=== PATIENT | female | born 1980 | race Caucasian/White ===

== ENCOUNTER 2017-02-23 17:44 | Emergency (ER) | payer BC, OTHER ==
--- NOTE | ~2017-02-23 | CR63 ---
[facility] A Service of [facility] RADIOLOGY TEXT RESULTS PATIENT: MELL BEATTY LOCATION: CFTX : 80 UNIT #: [id number] AGE: [address]: Yadira John SEX: F ORDER DR: [id number] [facility] [address] [place], [place] [address] [id number] MR#: [id number] Acc #: [id number] NAME: MELL BEATTY : 1980 SEX: F STUDY DATE/TIME: 02/23/2017 18:19 UNIT: [facility] ROOM: STUDY DESCRIPTION: CR Chest 2 View Attending Physician: Yadira John P.A.-C. Ordering Physician: Yadira John P.A.-C. Primary Care Physician: No Primary Care Physician MEDICAL IMAGING REPORT This report is preliminary unless electronic signature is present EXAM PA and lateral chest. HISTORY Cough and chest pain, and congestion for 1 week. FINDINGS PA and lateral examination of the chest upright shows a good expansion of the parenchyma with a normal distribution of the pulmonary vascularity. There is no indication of congestion, effusion, infiltrate, tumor, or nodular density. The pleural reflections and diaphragmatic contours are normal. The cardiac silhouette and mediastinal anatomy is within normal limits. IMPRESSION Normal chest. Dictated by... Pepe Winchester M.D. THIS IS AN ELECTRONICALLY VERIFIED REPORT Pepe Winchester M.D. at 02/23/2017 11:46 PM TIERRA/usman TD: 02/23/2017 21:32 JOB #: [id number] MEDICAL IMAGING REPORT Page 1 of 1 COPY
[~2017-02-23 17:44] MED LIST: FLEXERIL PO; IBUPROFEN PO
== END 2017-02-23 19:45 | disposition home or self-care (01) ==
LOC: CFTX 17:44
DX: J20.9 Acute bronchitis, unspecified (principal); J45.909 Unspecified asthma, uncomplicated; Z77.22 Contact with and (suspected) exposure to environmental tobacco smoke (acute) (chronic)
CPT/HCPCS: 71020; 84703; 94640; 96372; 99283; J0696